=== PATIENT | male | born 1965 | race Caucasian/White ===

== ENCOUNTER 2018-12-29 12:50 | Outpatient (REF) | payer OTHER, SELFPAY ==
--- NOTE | 2018-12-29 11:56 | SKI_PTH ---
PATIENT: Marvin Lundy LOC: [facility] U#:[id number] AGE/SX: 53/M ROOM: RE12/29/[address]: Yohannes Corea DO : 1965 BED: DIS: 12/29/2018 SPEC #: [id number] RECD: 12/29/18 18:13 STATUS: CHERIE REQ #: [id number] CHIP: 12/29/18 11:[address]: Yohannes Corea DEPT: Surgical Specimen RECD BY: Vanessa Cardoso ENTERED: 12/29/18 18:13 SP TYPE: JULIAN PAINTER DR: Maycol Brownele Tissues: 1 - SKIN BIOPSY(SHAVE/PUNCH) Procedures: SKIN LEVEL 4 Comments: [id number]
== END 2018-12-29 13:10 ==
LOC: LBN 12:50
PROVIDERS: PCP Family Medicine; Visit Provider Otolaryngology Otolaryngology/Facial Plastic Surgery
DX: C44.311 Basal cell carcinoma of skin of nose (principal)
CPT/HCPCS: 88305

== ENCOUNTER 2019-01-26 06:08 | Day surgery (SDC) | payer OTHER, SELFPAY ==
[2019-01-26 06:11] VITALS: BP 117/66; PULSE 56; RESP 16; TEMP 36.1; O2SAT 97
[2019-01-26] MEDS: Lactated Ringers 1,000 ML 80 ML IV (06:57)
--- NOTE | 2019-01-26 07:57 | SKI_PTH ---
PATIENT: Mravin Lundy LOC: [facility] U#:[id number] AGE/SX: 53/M ROOM: RE01/26/[address]: Yohannes Corea DO : 1965 BED: DIS: 01/26/2019 SPEC #: [id number] RECD: 01/26/19 11:14 STATUS: CHERIE REQ #: [id number] CHIP: 01/26/19 07:[address]: Yohannes Corea DEPT: Surgical Specimen RECD BY: Kayleigh Dang ENTERED: 01/26/19 11:17 SP TYPE: JULIAN PAINTER DR: Maycol Brownlee Tissues: 1 - SKIN BIOPSY(SHAVE/PUNCH) 2 - SKIN BIOPSY(SHAVE/PUNCH) 3 - FROZEN SECTION EXAM Procedures: FROZEN SECTION EXTRA SKIN LEVEL 4 FROZEN SECTION EXAM Comments: [id number]
--- NOTE | 2019-01-26 08:02 | W.PM.DSUDISC ---
Discharge Plan Disposition Patient Disposition: HOME Condition: Good Discharge Details Reason For Visit: OR Attending Provider: Yohannes Corea Primary Care Provider: Maycol Brownlee Home Meds and New Rx's Prescriptions: No Action sildenafil [Viagra] 100 MG tablet 100 mg PO PRN RF: 0 cyanocobalamin (vitamin B-12) [Vitamin B-12] 100 mcg Tablet 100 mcg PO DAILY RF: 0 folic acid 1 mg Tablet 1 mg PO DAILY RF: 0 Discharge Instructions Additional Instructions: see sheet Activity:: Activity as Tolerated Remove Dressings/Wound Care:: 24 hours Shower/Bathe:: 24 hours Diet:: As Tolerated
[2019-01-26] MEDS: Oxymetazolone 0.05% SPRAY 15 ML BTL (09:09)
[2019-01-26] MEDS: Bacitracin 30 GM TUBE (09:09)
[2019-01-26 09:43] VITALS: BP 117/72; PULSE 69; RESP 15; TEMP 36.3; O2SAT 100
[2019-01-26 09:48] VITALS: BP 104/63; PULSE 66; RESP 12; TEMP 36.3; O2SAT 100
[2019-01-26 09:53] VITALS: BP 119/80; PULSE 63; RESP 12; TEMP 36.3; O2SAT 100
[2019-01-26 10:09] VITALS: BP 120/69; PULSE 65; RESP 21; TEMP 36.6; O2SAT 97
--- NOTE | 2019-01-26 11:49 | ROE_ITS ---
DATE OF PROCEDURE: January 26, 2019 PREOPERATIVE DIAGNOSIS: Basal cell carcinoma, right nasal ala. POSTOPERATIVE DIAGNOSIS: Same. PROCEDURE: Excision and frozen section; full-thickness skin graft from right neck, primary site michelle uring 1.3 cm, graft site measuring 2.2 cm, close intermediate closure. Shave of the right nasal ala mole, less than .6 cm. SURGEON: Yohannes Corea D.O. ANESTHESIA: General LMA and 20 cc's of 1% Lidocaine with 1:100,000 epinephrine. ESTIMATED BLOOD LOSS: 2 cc's SPECIMENS: Frozen section analysis residual basal cell, however clear margins. COMPLICATIONS: None. CONDITION: The patient tolerated the procedure well, stable to PACU. INDICATIONS FOR PROCEDURE: This is a pleasant 53-year-old male who presents with a history of a non- healing lesion over the right ala for many years. No prior biopsy. I had recommended one based on clinical exam, which was shown to be basal cell carcinoma. We had an in-depth preoperative consultat ion regarding surgical reconstruction options, including medial labial flap versus full-thickness ski n graft. He understands the cosmetic difference and would like to proceed with a one-stage procedure , if possible. He understands the risk of cartilage involvement and auricular grafting, if needed. Consent was placed in the chart. PROCEDURE: The patient was brought back to the operating suite in stable condition, placed supine on the operating table and given LMA placement. The patient was prepped and draped in normal fashion. A time-out was taken to confirm proper patient and procedure. A total of 15 cc's of 1% Lidocaine wi th 1:100,000 epinephrine was injected preoperatively. Additional 5 cc's was used for the skin graft after frozen section was completed. A #15 blade scalpel was used to excise the ala skin lesion. Col ored sutures were placed. Frozen section performed. Pathology performed. There was residual tumor, however clear margins. Full-thickness skin graft was fashioned from the right neck. Full-thickness excision with a #15 blade scalpel within a neck line. This measured 2.2 cm. Intermediate closure w as performed with #4-0 Monocryl followed by #4-0 running nylon and the graft was sutured in place to the right nasal ala with #4-0 nylon followed by a pressure dressing with #3-0 Prolene. The patient t olerated the procedure well with scant blood loss. Will follow-up on Saturday in [place] for pressur e dressing removal and then next week for postoperative care.
== END 2019-01-26 11:13 | disposition home or self-care (01) ==
PROVIDERS: PCP Family Medicine; Visit Provider Otolaryngology Otolaryngology/Facial Plastic Surgery
PROC: (CPT 15260; principal; 2019-01-26 07:30)
DX: C44.311 Basal cell carcinoma of skin of nose (principal); D22.39 Melanocytic nevi of other parts of face
CPT/HCPCS: 15260; 11642; 11102; 88305; 88331; 88332; J0690

== ENCOUNTER 2019-03-16 16:44 | Outpatient (REF) | payer OTHER, SELFPAY ==
--- NOTE | 2019-03-16 16:02 | SKI_PTH ---
PATIENT: Marvin Lundy LOC: [facility] U#:[id number] AGE/SX: 53/M ROOM: RE03/16/[address]: Yohannes Corea DO : 1965 BED: DIS: 03/16/2019 SPEC #: [id number] RECD: 03/16/19 18:20 STATUS: CHERIE REQ #: [id number] CHIP: 03/16/19 16:[address]: Yohannes Corea DEPT: Surgical Specimen RECD BY: Vanessa Cardoso ENTERED: 03/16/19 18:21 SP TYPE: JLUIAN PAINTER DR: Maycol Brownlee Tissues: 1 - SKIN CYST/TAG/DEBRIDEMENT Procedures: SKIN BIOPSY LEVEL 3 Comments: [id number]
== END 2019-03-16 17:04 ==
LOC: LBN 16:44
PROVIDERS: PCP Family Medicine; Visit Provider Otolaryngology Otolaryngology/Facial Plastic Surgery
DX: L72.8 Other follicular cysts of the skin and subcutaneous tissue (principal)
CPT/HCPCS: 88304; 88305

== ENCOUNTER 2019-10-05 08:08 | Day surgery (SDC) | payer OTHER, SELFPAY ==
--- NOTE | 2019-10-05 06:42 | W.UPDATEHP ---
Date of service: 10/05/19 Time of Service: 09:13 Updated H&P Refer to Most Recent Clinic Note/H&P Dated: 09/11/19 H&P was reviewed,patient examined No change has occured in patient's condition since last H&P completed
--- NOTE | 2019-10-05 06:42 | W.COLOREPORT ---
Date of service: 10/05/19 Time of Service: 09:13 Colonoscopy Report Date of procedure: 10/05/19 Pre-op diagnosis general: Colon CAncer Screening Post-op diagnosis procedure note: same Procedure: Colonoscopy Surgeon: Ada Ash Anesthesia proc note operative: other (General/ ASA 2/Trey Hay, RAUL ) Estimated blood loss (mL): 0 Pathology: none sent Complications: None Disposition: same day Indications: The patient is here for Colonoscopy pre-op. He has no family history of colon cancer. He has not had any bowel habit changes. -Discussed colonoscopy bowel prep as well as the procedure. Discussed possible complications of the procedure to include bleeding, pain, perforation, missed small lesion/polyp, sore throat, aspiration and adverse reaction to the medications. Questions were answered to patient?s satisfaction. No guarantees were implied or given. Prep: Miralax/Dulcolax Procedure Start Time: :13 Procedure End Time: :28 Retraction Time: 11 minutes Findings: Normal colon Procedure Description: After informed consent was obtained the patient was taken to the procedure room and placed in a left decubitous position. Monitors were applied and a time out was done. The patients name, date of , procedure, allergies to medications and metal in their body was reviewed. The patient was then sedated. Once sedated and comfortable a rectal exam was done. External exam was normal. Internal exam revealed a normal sphincter tone and no palpable masses. The prostate felt smooth and normal size. The scope was then introduced and retro-flexed. No internal hemorrhoids, masses or polyps were identified. The scope was then advanced to the cecum without difficulty. The TI and appendiceal orifice were identified. The prep was good. The scope was then slowly retracted over 11 minutes back into the rectum. There were no polyps and no diverticula noted. The scope was removed and the patient was woken up and taken back to Same day surgery in stable condition. The patient tolerated the procedure well and there were no immediate complications. Follow up: The patient should follow up in 10 years unless they develop changes in bowel habits or other new gastrointestinal complaints.
--- NOTE | 2019-10-05 06:43 | W.PM.DSUDISC ---
Discharge Plan Disposition Patient Disposition: HOME Condition: Good Discharge Details Reason For Visit: Colon Cancer Screening Attending Provider: Ada Ash Primary Care Provider: Maycol Brownlee Home Meds and New Rx's Prescriptions: Continued sildenafil [Viagra] 100 MG tablet 100 mg PO PRN RF: 0 Discharge Instructions Additional Instructions: Findings: Normal colon Follow up: 10 years Please call if you develop: fevers >101.5 Nausea or Vomiting Abdominal pain that is not transient DAY SURGERY UNIT POST ENDOSCOPY INSTRUCTIONS 1. Because there will be medication in your system for the next 24 hours, you may feel a little sleepy. Your coordination will be affected. Therefore: a. Do not drive or operate dangerous equipment for 24 hours. b. Do not drink alcohol beverages for 24 hours (not even beer). c. Plan to go home and rest for the day. 2. Generally there are no restrictions on your activity after a day or so has gone by, but you may feel a bit fatigued for a few days. 3 After you arrive home you may have a light meal and return to a normal diet as you can tolerate it without feeling sick to your stomach. 4. After surgery, you may feel pain or discomfort. This should be only transient, but if it persists please contact your doctor. 5. If there are any questions regarding the findings of your procedure, please feel free to contact your doctor. 6. If you are unable to contact your doctor with a problem, contact the hospital at [phone]. 7. Continue all your regular medications unless directed otherwise. I understand the above instructions and have no questions. Signature of Patient or Responsible Adult Escort Date/Time Name of Responsible Adult Escort Signature of Nurse Date/Time Activity:: Activity as Tolerated Diet:: As Tolerated Discharge Orders Discharge Orders: Discharge Order (Routine); Ordered 10/05/19 Ordered By: Ada Ash DS: Diagnosis Discharge Diagnosis (1) S/P colonoscopy: Status: Acute
[2019-10-05 08:22] VITALS: BP 118/74; PULSE 72; RESP 18; TEMP 37; O2SAT 95
[2019-10-05] MEDS: Lactated Ringers 1,000 ML 80 ML IV (08:41)
--- NOTE | 2019-10-05 09:13 | HPE_ITS ---
Date of service: 10/05/19 Time of Service: 09:13 Updated H&P Refer to Most Recent Clinic Note/H&P Dated: 09/11/19 H&P was reviewed,patient examined No change has occured in patient's condition since last H&P completed cc: Dictated by: CHELSEA WILSON MD Dictated: 10/05/19Time: 641 <Electronically signed by Ada Wilson M.D.> Date: 12/05/18934 Date: Date: Transcribed Date: 10/05/19 Transcribed Time: 641By: JOSE
[2019-10-05 10:00] VITALS: BP 119/69; PULSE 63; RESP 16; TEMP 36.5; O2SAT 96
== END 2019-10-05 10:15 | disposition home or self-care (01) ==
LOC: SUR 08:08
PROVIDERS: PCP Family Medicine; Visit Provider Surgery
PROC: 0DJD8ZZ Inspection of Lower Intestinal Tract, Via Natural or Artificial Opening Endoscopic (ICD-10-PCS; CPT 45378; principal; 2019-10-05 09:00)
DX: Z12.11 Encounter for screening for malignant neoplasm of colon (principal)
CPT/HCPCS: 45378; J2250; J3010

== ENCOUNTER 2020-08-16 14:31 | Outpatient (REF) | payer OTHER, SELFPAY ==
[2020-08-16 18:50] LABS: Hemoglobin A1C 5.8 % (<5.7)
[2020-08-16 18:54] LABS: Calculated LDL 172 mg/dL (<100); Cholesterol 265 mg/dL (<200); HDL Cholesterol 64 mg/dL (40-60); Triglyceride 149 mg/dL (<150)
== END 2020-08-16 14:51 ==
LOC: NCHCN 14:31
PROVIDERS: PCP Family Medicine; Visit Provider Family Medicine
DX: E78.5 Hyperlipidemia, unspecified (principal)
CPT/HCPCS: 80061; 83036

== ENCOUNTER 2021-08-23 10:08 | Outpatient (CLI) | payer OTHER, SELFPAY ==
[2021-08-23 11:16] LABS: Hemoglobin A1C 5.8 % (<5.7)
[2021-08-23 12:32] LABS: ALT 29 U/L (16-63); AST 17 U/L (15-37); Albumin 4.4 g/dL (3.4-5.0); Alkaline Phosphatase 53 U/L (46-116); Anion Gap 7.4 mmol/L (3-11); BUN 18 mg/dL (7-18); Bilirubin, Total 0.7 mg/dL (0.2-1.0); CO2 30.6 mmol/L (21.0-32.0); CREATININE 0.9 mg/dL (0.70-1.30); Calcium 9.4 mg/dL (8.5-10.1); Chloride 101 mmol/L (98-107); Glucose 93 mg/dL (74-106); Potassium 4.2 mmol/L (3.5-5.1); Sodium 139 mmol/L (136-145); Total Protein 8.2 g/dL (6.4-8.2)
[2021-08-23 17:07] LABS: PSA, Screening 0.3 ng/mL (0.0-3.5)
[2021-08-24 13:06] LABS: Hepatitis C Ab w Rflx HCV PCR Negative (Negative)
== END 2021-08-23 10:09 | disposition home or self-care (01) ==
LOC: LBO 10:10
PROVIDERS: PCP Family Medicine; Visit Provider Family Medicine
DX: Z11.59 Encounter for screening for other viral diseases (principal); R10.9 Unspecified abdominal pain; R39.89 Other symptoms and signs involving the genitourinary system; R73.03 Prediabetes; Z00.00 Encounter for general adult medical examination without abnormal findings
CPT/HCPCS: 80053; 84153; 86803; 83036

== ENCOUNTER 2023-04-17 18:00 | Outpatient (REF) | payer OTHER, SELFPAY ==
[2023-04-18 16:42] LABS: Calculated LDL 156 mg/dL (<100); Cholesterol 259 mg/dL (<200); HDL Cholesterol 63 mg/dL (40-60); Triglyceride 200 mg/dL (<150)
== END 2023-04-17 18:01 | disposition home or self-care (01) ==
LOC: NCHCN 18:00
PROVIDERS: PCP Family Medicine; Visit Provider Family Medicine
DX: Z00.00 Encounter for general adult medical examination without abnormal findings (principal); E78.5 Hyperlipidemia, unspecified
CPT/HCPCS: 80061

== ENCOUNTER 2023-08-29 05:55 | Day surgery (SDC) | payer OTHER, SELFPAY ==
--- NOTE | 2023-08-28 20:12 | ENDO_ITS ---
Date of service: 08/29/23 Time of Service: 07:48 Endoscopy Report DATE OF PROCEDURE: 08/29/23 PRE-OP DIAGNOSIS: Globus sensation POST-OP DIAGNOSIS: other (Gastric inlet patches) PROCEDURE: EGD with biopsies SURGEON: Matt Jackson ANESTHESIA TYPE: General:No Airway ESTIMATED BLOOD LOSS: 10 PATHOLOGY: other (Gastric body and antrum, esophagus, upper esophagus) COMPLICATIONS: None DISPOSITION: same day INDICATIONS: Marvin is 57 years old. He has been suffering from dysphagia with a globus sensation. 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 Under the direct vision of the scope, I advanced down the esophagus into the stomach.? Once I entered the stomach, I performed a brief inspection, followed by retroflexion towards the gastric cardia.? This appeared normal.? After that, I gently advanced the scope around the incisura angularis and examined the pylorus.? This also appeared normal.? Given the patient's symptoms, I did not feel it necessary to evaluate the d uodenum. I did perform cold forceps biopsies of the gastric antrum and body to rule out Helicobacter pylori. Next, I emptied the stomach and brought the camera up to the GE junction. The Z-line was normal-appearing at 43 cm from the incisors. The lower esophagus, mid esophagus, and general upper esophagus all appeared normal. At the proximalmost portion of the upper esophagus, just below the cricopharyngeus muscle were 2 patches on the right and left side of the esophagus. Likely, these appeared consistent with gastric inlet patches, I did perform cold forceps biopsies of both sides. These were labeled upper esophagus. There was minimal bleeding from all biopsy sites. I then withdrew the camera and allowed the patient to awaken from anesthesia prior to transfer to the recovery unit.
--- NOTE | 2023-08-28 20:14 | PDOC.DSDIS_ITS ---
Date of service: 08/29/23 Time of Service: 07:51 Discharge Plan Disposition Patient Disposition: Home Condition: Good Discharge Details Reason For Visit: EGD Attending Provider: Matt Jackson Primary Care Provider: Maycol Brownlee Home Meds and New Rx's Prescriptions: Continued omeprazole magnesium [Prilosec OTC] 20 mg tablet,delayed release (DR/EC) 20 mg PO DAILY Qty: 30 1RF Rx Instructions: take 1/2 - 1 hour before a meal sildenafil [Viagra] 100 MG tablet 100 mg PO PRN Discharge Instructions Additional Instructions: Marvin, we were able to do your upper endoscopy today without any difficulty at all. The lower part of your esophagus and stomach all looked totally normal. There are 2 abnormalities in the uppermost portion of your esophagus. These appear consistent with gastric inlet patches. I did perform biopsies of these. Gastric inlet patches are small islands of abnormal lining of the esophagus. Essentially, they consist of cells that should be present in the stomach, but they developed in the incorrect place. This can produce acid in the upper part of the esophagus rather than stomach which can cause some of the symptoms that you have been experiencing. Generally, the best treatment is with antacid medications such as omeprazole. I think you should continue taking this for now. On occasion, these patches can become infected with bacteria called Helicobacter pylori. The biopsy results will test for that. If that is the ca se, there is another line of treatment to help cure that, which may relieve your symptoms. Once I have the results of the biopsies I will be in touch. 1. If tolerated, consume a soft, low fiber diet for 1-2 days. 2. Do not drive, drink alcohol, operate machinery, make critical decisions, or do activities that require coordination or balance for 24 hours. 3. You may experience a sore throat for 24 to 48 hours. You may use throat lozenges or gargle with warm salt water to relieve the discomfort. 4. Because air was put into your stomach during the procedure, you may experience some belching. 5. Go directly to the emergency room if you notice any of the following: Develop chills (warm to touch), or if you have a thermometer and your temperature is above 101 Difficulty breathing or difficultly swallowing Persistent vomiting Severe abdominal pain, other than gas cramps Severe chest pain Black, tarry stools Any bleeding ? exceeding one tablespoon 6. Call your physician if the site where your intravenous was started becomes red, swollen, painful, and warm to touch. 7. Your physician has reviewed your pre-procedure medications. Please continue to take those medications as previously ordered. You will be given specific information/education regarding any changes to your medications before leaving. Activity:: Activity as Tolerated Diet:: As Tolerated Discharge Orders Discharge Orders: Discharge Order (Routine); Ordered 08/28/23 Ordered By: Matt Jackson DS: Diagnosis Discharge Diagnosis (1) Globus sensation: Status: Acute Asessment and Plan: Follow-up on biopsy results
[2023-08-29 06:14] VITALS: BP 129/87; PULSE 67; RESP 17; TEMP 36.6; O2SAT 96
[2023-08-29] MEDS: Lactated Ringers 1,000 ML 80 ML IV (06:32)
--- NOTE | 2023-08-29 06:47 | W.ANESPRE ---
General Info Date of Service Date Performed: 08/29/23 Height: 6 ft 1 in Weight: 99.6 kg Body Mass Index (BMI): 29.0 Surgical Procedure: Operation Date: 08/29/23 07:35 Proposed Procedure Side Surgeon p Gastroscopy Matt Jackson MD Meds Allergies and Home Medications Allergies Allergy/AdvReac Type Severity Reaction Status Date / Time No Known Allergies Allergy Verified 08/29/23 06:23 Home Medication Medication Instructions Recorded sildenafil 100 mg tablet (Viagra) 100 mg PO PRN 02/28/15 omeprazole magnesium 20 mg 20 mg PO DAILY #30 tabs 08/05/23 tablet,delayed release (Prilosec OTC) Current Visit Medications: Current Medications Generic Name Dose Route Start Last Admin Trade Name Freq PRN Reason Stop Dose Admin Hyoscyamine Sulfate 0.125 mg 08/28/23 20:15 Hyoscyamine 0.125 Mg Sl/Oral/Chew SL 09/27/23 20:14 DIRECTED PRN Ringer's Solution 1,000 mls @ 80 mls/hr 08/29/23 06:00 08/29/23 06:32 IV 09/27/23 23:59 80 mls/hr INFUSION [place] Administration IV Miscellaneous Supplies 1 each 08/29/23 06:00 Iv Access IV 09/27/23 23:59 DIRECTED [place] Ondansetron HCl 4 mg 08/28/23 20:15 Ondansetron 4 Mg/2 Ml Vial IVP 09/27/23 20:14 Q4H PRN PRN Nausea / Vomiting Sodium Chloride 0 ml 08/29/23 06:00 Normal Saline Flush 10 Ml Syr IV 09/27/23 23:59 PRN PRN Sodium Chloride 0 ml 08/29/23 06:00 Normal Saline 10 Ml Vial IJ 09/27/23 23:59 DIRECTED PRN Sterile Water 0 ml 08/29/23 06:00 Water,Injection,Sterile 10 Ml Vial IJ 09/27/23 23:59 DIRECTED PRN PFSH Active Problems Active Problems: Problem Status Onset Code Globus sensation R09.89 Pharyngoesophageal dysphagia R13.14 Employee exposure to body fluids Z57.8 Encounter for screening for other viral diseases Z11.59 S/P colonoscopy ~10/05/19 Z98.890 Erectile dysfunction N52.9 Hyperlipidemia E78.5 Memory impairment R41.3 Hearing impairment H91.90 Basal cell carcinoma (BCC) of right side of nose C44.311 Medical History Medical History (Updated 08/28/23 @ 11:11 by Efra Browning) Impacted cerumen, bilateral Prediabetes Overweight Basal cell carcinoma of nose Oral benign tumor Lower urinary tract symptoms Sensation of foreign body Tinnitus Palpitations Per pt. states no longer an issue Surgical History Surgical History History of skin graft nose Tobacco Smoking/Tobacco Use Status: Never Alcohol Alcohol Intake: current Alcohol intake frequency: a few times a week Alcohol type: beer Substance Use Substance use: Never Substance use type: does not use Vital Signs and Lab Results Vital Signs Most Recent Vital Signs in EMR: Most Recent Vital Signs Temp Pulse Resp BP Pulse Ox 36.6 C 67 17 129/87 96 08/29/23 06:14 08/29/23 06:14 08/29/23 06:14 08/29/23 06:14 08/29/23 06:14 Lab Results Blood Type / Crossmatch: No Data to Display Complete Blood Count: No Data to Display Complete Metabolic Panel: No Data to Display Liver Function Panel: No Data to Display Coagulation Panel: No Data to Display Cardiac Panel: No Data to Display Arterial Blood Gas: No Data to Display Venous Blood Gas: No Data to Display Pancreas Panel: No Data to Display Thyroid Panel: No Data to Display Infectious Disease: No Data to Display Blood Cultures: No Data to Display Toxicology Panel: No Data to Display Anesthesia Assessment and Plan Anesthesia History Personal History: No History of Anesthesia Complications Family History: No Family History of Anesthesia Complications Exercise Tolerance Exercise Tolerance: Metabolic Equivalents>4 Pertinent Negatives Pertinent Negatives: No Symptoms of GERD, No Major Cardiovascular Symptoms or Complaints, No Major Pulmonary Symptoms or Complaints and No History of CVA/TIA Cardiac & Pulmonary Exam Cardiac Exam: Normal S1/S2 Heart Sounds Pulmonary Exam: Clear Bilateral Breath Sounds Implantable Cardiac Device Does patient have a Pacemaker or an ICD?: No Airway Exam Known Difficult Airway: No Mallampati Class: 2 Mouth Opening: Normal (> 3cm) Thyromental Distance: Greater than 3 cm Neck Range of Motion: Full ROM Neck Circumference: Normal Teeth Condition: Normal Dentition ASA Classification ASA Score: ASA 2 Emergency Case?: No NPO Status NPO Status: NPO Clears >2 hours, Solids >8 hours Anesthesia Plan Resuscitation Status: Full Code Anesthesia Technique: General Anesthesia Airway Planned: Natural Airway Monitors Used: Standard Monitors Preoperative Comments:: 57 yo patient for EGD. PMH: GERD (Omeprazole) Last Anesthetic: ASA 2 MP2, 3FB, FCROM, normal dentition. GA with natural airway and did well.
[2023-08-29 07:04] VITALS: BMI 29.0
--- NOTE | 2023-08-29 07:30 | STOM_PTH ---
PATIENT: Marvin Lundy LOC: [facility] U#:[id number] AGE/SX: 57/M ROOM: RE08/29/[address]: Matt Jackson MD : 1965 BED: DIS: 08/29/2023 SPEC #: [id number] RECD: 08/29/23 10:28 STATUS: CHERIE REQ #: [id number] CHIP: 08/29/23 07:[address]: Matt Jackson DEPT: Surgical Specimen RECD BY: Vanessa Cardoso ENTERED: 08/29/23 10:29 SP TYPE: STOMACH OTHR DR: Maycol Brownlee Tissues: 1 - STOMACH BIOPSY 2 - STOMACH BIOPSY 3 - ESOPHAGUS BIOPSY 4 - ESOPHAGUS BIOPSY Procedures: GROSS AND MICRO LEVEL 4 Comments: [id number]
[2023-08-29 07:38] VITALS: BP 124/80; PULSE 80; RESP 18; TEMP 36.7; O2SAT 95
--- NOTE | 2023-08-29 08:02 | W.ANESPOSTOP ---
Postoperative Evaluation Date, Time and Location Date Performed: 08/29/23 Time Performed: 08:02 Patient Location: Day Surgery Unit Vital Signs Most Recent Imported Vital Signs: Most Recent Vital Signs Temp Pulse Resp BP Pulse Ox 36.7 C 80 18 124/80 95 08/29/23 07:38 08/29/23 07:38 08/29/23 07:38 08/29/23 07:38 08/29/23 07:38 Pain Score Most Recent Pain Score: Most Recent Pain Score Pain Level 0 08/29/23 07:38 Assessment Mental Status: Awake (Alert & Oriented to Patient Baseline) Airway and Respiratory Function: Patent airway with normal (patient baseline) respiratory exam Cardiovascular Function: Hemodynamically Stable Hydration Status: Adequately Hydrated Nausea & Vomiting: No Nausea or Vomiting Pain: Pt. Denies Any Pain Peripheral Nerve Block: Patient did not receive a nerve block
[2023-08-29 08:09] VITALS: BP 140/95; PULSE 68; RESP 16; TEMP 36.6; O2SAT 96
== END 2023-08-29 08:34 | disposition home or self-care (01) ==
LOC: SUR 05:56
PROVIDERS: PCP Family Medicine; Visit Provider Surgery
PROC: 0DJ68ZZ Inspection of Stomach, Via Natural or Artificial Opening Endoscopic (ICD-10-PCS; CPT 43235; principal; 2023-08-29 07:30)
DX: R13.10 Dysphagia, unspecified (principal); K22.89 Other specified disease of esophagus
CPT/HCPCS: 43239; 88305

== ENCOUNTER 2024-08-07 10:38 | Outpatient (REF) | payer OTHER, SELFPAY ==
[2024-08-10 09:22] LABS: PSA, Screening 0.3 ng/mL (<=3.5)
== END 2024-08-07 10:39 | disposition home or self-care (01) ==
LOC: NCHCN 10:38
PROVIDERS: PCP Student in an Organized Health Care Education/Training Program; Visit Provider Student in an Organized Health Care Education/Training Program
DX: Z12.5 Encounter for screening for malignant neoplasm of prostate (principal)
CPT/HCPCS: 84153